=== PATIENT | male | born 1985 | race Caucasian/White ===

== ENCOUNTER 2023-02-07 09:50 | Emergency (ER) | payer BC ==
[2023-02-07] MEDS ORDERED: Ciprofloxacin 0.3% Ophth Soln 5 ML Bottle EYELF ONE (10:50)
[2023-02-07] MEDS ORDERED: Ketorolac 0.5% Ophth Soln 5 ML Bottle EYELF SCH (13:00)
== END 2023-02-07 11:20 | disposition home or self-care (01) ==
LOC: JD.ED 09:50
DX: S05.02XA Injury of conjunctiva and corneal abrasion without foreign body, left eye, initial encounter (principal); F17.210 Nicotine dependence, cigarettes, uncomplicated; X58.XXXA Exposure to other specified factors, initial encounter
CPT/HCPCS: 99283; A9270

== ENCOUNTER 2025-03-11 17:21 | Emergency (ER) | payer BC ==
[2025-03-11] MEDS: Diphtheria,Pertussis(Acell),Tetanus Vaccine 0.5 ML Syringe IM ONE (18:21)
== END 2025-03-11 18:55 | disposition home or self-care (01) ==
LOC: JD.ED 17:21
DX: S01.01XA Laceration without foreign body of scalp, initial encounter (principal); Z23 Encounter for immunization; Z79.899 Other long term (current) drug therapy; F17.200 Nicotine dependence, unspecified, uncomplicated; X50.1XXA Overexertion from prolonged static or awkward postures, initial encounter
CPT/HCPCS: 12001; 90471; 90715; 99282; J2003; 99283